=== PATIENT | male | born 1960 ===

== ENCOUNTER 2018-04-22 17:00 | Emergency (ER) | payer MEDICAID ==
[~2018-04-22] VITALS: Ht 177.8 cm; Wt 74.8 kg
[2018-04-22] MEDS: cloNIDine HCL 0.1 MG TAB PO ONE (17:27)
[2018-04-22 17:56] VITALS: BP 158/87
== END 2018-04-22 18:05 ==
LOC: ER 17:00
DX: M25.512 Pain in left shoulder (principal); M25.511 Pain in right shoulder
CPT/HCPCS: 82962